=== PATIENT | female | born 1965 | race Hispanic/Latino ===

== ENCOUNTER 2018-09-03 07:57 | Outpatient (CLI) | payer OTHER ==
--- NOTE | 2018-09-03 11:27 | Ultrasound Report ---
Pelvic and transvaginal sonography: History: Pelvic pain. Findings: Uterus measures 4.6 x 2.8 x 2.8 cm. Retroverted uterus. Endometrial thickness 17 mm. Minimal fluid in endometrium. Nabothian cysts in the cervix. Right ovary 2 x 1.5 x 1.3 cm. No mass. Left ovary 2.2 x 1.2 x 1.2 cm. No mass. Impression: Trace of fluid in endometrium. Nabothian cyst in the cervix.
== END 2018-09-03 07:58 | disposition home or self-care (01) ==
LOC: SPVWC 07:57
PROVIDERS: ATTEND Internal Medicine
DX: N88.8 Other specified noninflammatory disorders of cervix uteri (principal); I10 Essential (primary) hypertension; K21.9 Gastro-esophageal reflux disease without esophagitis; Z87.891 Personal history of nicotine dependence
CPT/HCPCS: 76830; 76856